=== PATIENT | male | born 1965 | race Caucasian/White ===

== ENCOUNTER → 2017-01-05 | Outpatient (CLI) | payer OTHER | LOC: EMI 17:11 | DX: M54.16 Radiculopathy, lumbar region (principal); M54.5 Low back pain; M47.816 Spondylosis without myelopathy or radiculopathy, lumbar region | CPT/HCPCS: 72148 ==

== ENCOUNTER → 2021-01-12 | Outpatient (CLI) | payer OTHER ==
[2021-01-12 17:03] LABS: BUN/CREATININE RATIO 20 (0-10)
== END ==
LOC: LAB 16:13
PROVIDERS: Urology
DX: N40.1 Benign prostatic hyperplasia with lower urinary tract symptoms (principal)
CPT/HCPCS: 74018; 80053; 87086

== ENCOUNTER 2021-07-15 15:45 | Emergency (ER) | payer OTHER ==
[2021-07-15 17:19] LABS: HEMOGLOBIN 15.2 gm/dl (14.0-17.5); RED BLOOD COUNT 5.19 M/UL (4.20-5.50); WHITE BLOOD COUNT 8.2 K/UL (4.5-11.0)
[2021-07-15 17:22] LABS: BUN/CREATININE RATIO 17 (0-10)
[2021-07-15] MEDS ORDERED: BENTYL 20MG TAB20 MG PO (21:09)
== END 2021-07-15 21:25 | disposition home or self-care (01) ==
LOC: ER1 15:45
DX: R10.9 Unspecified abdominal pain (principal); R11.0 Nausea; R10.819 Abdominal tenderness, unspecified site
CPT/HCPCS: 80053; 81001; 82962; 83690; 85025; 96374; 99284; J2270; J2405; Q9967

== ENCOUNTER → 2021-07-29 | Outpatient (CLI) | payer OTHER ==
[~2021-07-29] MED LIST: BENTYL 20MG TAB20 MG PO
== END ==
LOC: KOH-I 14:25
DX: J32.9 Chronic sinusitis, unspecified (principal); R51.9 Headache, unspecified
CPT/HCPCS: 70486

== ENCOUNTER → 2021-08-07 | Outpatient (CLI) | payer OTHER ==
[2021-08-07 17:00] LABS: BUN/CREATININE RATIO 15 (0-10)
[2021-08-09 06:44] LABS: % FREE PSA 8.5 % (.); PROSTATE SPECIFIC AG, SERUM 1.3 ng/mL (0.0-4.0); PSA, FREE 0.11 ng/mL
== END ==
LOC: RAD 16:14
PROVIDERS: Urology
DX: N40.1 Benign prostatic hyperplasia with lower urinary tract symptoms (principal); R31.1 Benign essential microscopic hematuria; R14.3 Flatulence; K59.00 Constipation, unspecified
CPT/HCPCS: 36415; 74018; 80053; 84153; 84154

== ENCOUNTER → 2021-08-31 | Day surgery (SDC) | payer OTHER ==
[~2021-08-31] VITALS: Ht 172.7 cm; Wt 82.6 kg
[~2021-08-31] MED LIST changes: +ALFUZOSIN HCL E10 MG PO; +AVODART0.5 MG PO; +CEPHALEXIN500 M1 PO; +HYDROCODON-ACE1 EAC4 PO; +LIPITOR40 MG PO; +LYRICA 75 MG CA75 MG PO
== END | disposition home or self-care (01) ==
LOC: OR 08:09
DX: J34.2 Deviated nasal septum (principal); J34.3 Hypertrophy of nasal turbinates; J32.9 Chronic sinusitis, unspecified; E78.5 Hyperlipidemia, unspecified; E11.9 Type 2 diabetes mellitus without complications; Z79.899 Other long term (current) drug therapy; Z20.822 Contact with and (suspected) exposure to COVID-19
CPT/HCPCS: 82962; C1726; J0171; J0690; J1100; J2001; J2250; J2405; J2704; J2710; J3010; J7030; J7120

== ENCOUNTER → 2022-03-01 | Outpatient (CLI) | payer OTHER | LOC: NM 13:00 | DX: R10.11 Right upper quadrant pain (principal); R11.0 Nausea | CPT/HCPCS: 78227; A9537 ==

== ENCOUNTER → 2022-04-01 | Day surgery (SDC) | payer BC ==
[~2022-04-01] MED LIST changes: +VITAMIN C1000 MG PO; +VITAMIN E450 M1 PO
== END | disposition home or self-care (01) ==
LOC: OR 06:02
DX: K81.1 Chronic cholecystitis (principal)
CPT/HCPCS: 82962; C1729; J0690; J1100; J1170; J1885; J2001; J2250; J2405; J2704; J3010; J7120

== ENCOUNTER 2022-04-19 19:27 | Emergency (ER) | payer BC ==
[2022-04-19 22:18] LABS: HEMOGLOBIN 14.7 gm/dl (14.0-17.5); RED BLOOD COUNT 4.86 M/UL (4.20-5.50)
[2022-04-19 23:19] LABS: BUN/CREATININE RATIO 18 (0-10)
== END 2022-04-20 00:55 | disposition home or self-care (01) ==
LOC: ER1 19:27
PROVIDERS: Physician Assistant
DX: H49.22 Sixth [abducent] nerve palsy, left eye (principal); E11.9 Type 2 diabetes mellitus without complications
CPT/HCPCS: 70496; 70498; 80053; 82550; 82553; 84484; 85025; 85652; 86140; 99284; Q9967